=== PATIENT | female | born 1980 | race Hispanic/Latino ===

== ENCOUNTER 2025-06-11 13:01 | Emergency (ER) | payer SELFPAY ==
[2025-06-11 13:03] VITALS: BP 137/98; PULSE 56; RESP 18; TEMP 36.8; O2SAT 100
[2025-06-11 14:46] VITALS: BMI 40.1
--- NOTE | 2025-06-11 15:33 | EDS_ITS ---
HPI HPI - Fall History of Present Illness Chief Complaint: Fall Narrative Narrative: Chief complaint and HPI: 44-year-old female who is [place]yan-speaking presents for evaluation of left hip and pelvic pain. Official alarm mechanism adjuster was used. Patient states earlier today she was helping load boxes on a loading dock when she fell off. Landed on her left hip. Did not hit her head. No LOC. Not on blood thinners. She was able to ambulate but had pain afterwards. Review of systems: See HPI Medications: As listed on the chart Allergies: As listed on the chart PFSH: Per chart Vital signs: As listed on the chart. Reviewed. Physical exam: Gen: A&O x3, NAD Head: Normocephalic, atraumatic Eyes: No sclera icterus, conjunctiva clear, PERRL ENT: Moist mucous membranes, atraumatic Neck: Trachea midline, full range of motion, nontender CV: RRR, no murmurs, no chest wall TTP Resp: Lungs CTA BL, no w/r/c GI: Abd soft, non-distended, non-tender, no r/r/g Musc: Full ROM but endorses mild pain with movement of the left hip-mildly tender to palpation without external signs of trauma, no deformity, no midline spinal tenderness, no bony step-offs, DP/PT pulses +2 bilaterally, compartments soft Skin: Warm, dry, intact Neuro: Alert, oriented, grossly intact, sensation intact, GCS 15 Psych: Cooperative, appropriate mood and affect [facility] Medical History (Updated 06/11/25 @ 14:48 by Crystal Ely) Non-smoker DVT (deep venous thrombosis) Allergy/AdvReac Type Severity Reaction Status Date / Time No Known Allergies Allergy Verified 06/11/25 13:06 Social History Smoking Status: Never smoker EXAM Physical Exam Const Vital Signs: 06/11/25 13:03 06/11/25 14:51 Temperature 98.2 F Temperature Source Oral Pulse Rate 56 L Respiratory Rate 18 Respiratory Effort Normal Blood Pressure 137/98 H Blood Pressure Mean 111 Pulse Ox 100 Oxygen Delivery Method Room Air Room Air MDM MDM MDM Narrative Medical decision making narrative: 44-year-old female who is [place]yan-speaking presents for evaluation of left hip and pelvic pain. Official alarm mechanism adjuster was used. Patient states earlier today she was helping load boxes on a loading dock when she fell off. Landed on her left hip. Did not hit her head. No LOC. Not on blood thinners. Differential diagnosis includes but is not limited to contusion versus fracture. IM Toradol ordered. X-ray of the hip and pelvis ordered. X-ray of the pelvis and hip was personally viewed interpreted by me, ED physician. No fracture or dislocation. Radiology in agreement. Patient's symptoms likely secondary to a contusion. She is able to ambulate. Ibuprofen and Tylenol as needed for pain. She confirmed understanding of the plan. Follow-up with PCP. Patient will discharge home. Impression: 1. Mechanical fall 2. Left hip contusion Radiography Diagnostic Testing: Clinical Impression(s) from Imaging Studies Hip/Pelvis X-Ray 06/11/25 15:50 IMPRESSION: No acute abnormality of the pelvis or left hip. Reading Location: [id number] Discharge Plan Triage Chief Complaint: Fall ED Provider: Nicholas Howell Dx/Rx/DC Orders Primary Care Provider: Brittany Durand Referrals: Brittany Durand MD [Primary Care Provider, Family Practice] Print Language: Uzbek
--- NOTE | 2025-06-11 15:50 | RAD_ITS ---
PROCEDURE: HIP, UNI W/ PELVIS 2-3 VIEWS 06/11/2025 REASON FOR EXAM: FALL, PAIN TECHNIQUE: Procedure Code: RAD Modality: DX Procedure: HIP, UNI W/ PELVIS 2-3 VIEWS Laterality: Left COMPARISON: None FINDINGS: Bones: Bone mineralization is normal. No fracture is seen. Joints: Normal alignment. Soft tissues: Soft tissues are unremarkable. Other: No foreign body RAD/HIP, UNI W/ Pelvis 2-3 Views IMPRESSION: No acute abnormality of the pelvis or left hip. Reading Location: [id number]
[2025-06-11 16:21] VITALS: BP 108/61; PULSE 54; RESP 18; TEMP 37.1; O2SAT 99
== END 2025-06-11 16:27 | disposition home or self-care (01) ==
PROVIDERS: Emergency Provider Surgery; PCP Family Medicine; Visit Provider Surgery
DX: S70.02XA Contusion of left hip, initial encounter (principal); W17.4XXA Fall from dock, initial encounter
CPT/HCPCS: 73502; 96372; 99282